=== PATIENT | male | born 1970 | race Two or more races ===

== ENCOUNTER 2021-03-30 13:44 | Emergency (ER) | payer OTHER ==
[~2021-03-30] VITALS: Ht 170.2 cm; Wt 108.9 kg
[2021-03-30 14:42] LABS: Basophils # (auto) 0 10 ^3/uL (0-0.2); Basophils % (auto) 0.4 % (0.0-2.0); Eosinophils # (auto) 0 10 ^3/uL (0-0.8); Eosinophils % (auto) 0.6 % (0.0-7.0); Hematocrit 48.4 % (41.0-53.0); Lymphocytes # (auto) 1.7 10 ^3/uL (0.4-5.4); Lymphocytes % (auto) 25.2 % (10.0-50.0); Mean Corpuscular Hemoglobin 28.7 pg (28.0-32.0); Mean Corpuscular Hgb Conc. 35.2 g/dL (32.0-36.0); Mean Corpuscular Volume 81.6 fL (80.0-100.0); Monocytes # (auto) 0.9 10 ^3/uL (0-1.3); Monocytes % (auto) 12.9 % (0.0-12.0); Neutrophils # (auto) 4.2 10 ^3/uL (1.6-8.6); Neutrophils % (auto) 60.9 % (37.0-80.0); Red Blood Cells 5.94 10^6/uL (4.5-5.90); Red Cell Distribution Width 14.4 % (11.8-14.3); White Blood Cell 6.9 10^3/uL (4.4-10.8)
[2021-03-30 14:57] LABS: Chloride 106 mmol/L (98-107); Potassium 3.8 mmol/L (3.5-5.1); Sodium 137 mmol/L (136-145)
[2021-03-30 15:01] LABS: Albumin 3.2 g/dL (3.4-5.0); Anion Gap 6 (5-15); Blood Urea Nitrogen 12 mg/dL (7-18); Calcium 8.5 mg/dL (8.5-10.1); Carbon Dioxide 25 mmol/L (21-32); GFR African American 131 mL/min; GFR Non-African American 108 mL/min; Glucose 301 mg/dL (74-106); Magnesium 2.2 mg/dL (1.6-2.6)
[2021-03-30 15:13] LABS: Alanine Aminotransferase 51 U/L (16-61); Alkaline Phosphatase 114 U/L (45-117); Aspartate Aminotransferase 23 U/L (15-37); Bilirubin, Total 0.6 mg/dL (0.2-1.0); Total Protein 7.6 g/dL (6.4-8.2)
[2021-03-30 16:21] LABS: Urine Bacteria NONE SEEN /hpf (None Seen); Urine Blood Negative /uL (Negative); Urine Mucus FEW (None Seen); Urine Specific Gravity 1.044 (1.001-1.035); Urine WBC 2 /hpf (0 - 3)
[2021-03-30 16:35] LABS: Amphetamine Screen, Urine NEGATIVE (NEGATIVE); Barbiturate Scree,Urine NEGATIVE (NEGATIVE); Benzodiazephine Screen, Urine NEGATIVE (NEGATIVE); Cannabinoid Screen, Urine NEGATIVE (NEGATIVE); Cocaine Screen, Urine NEGATIVE (NEGATIVE); Opiate Scree,Urine NEGATIVE (NEGATIVE); Phencyclidine Screen, Urine NEGATIVE (NEGATIVE)
[2021-03-30 16:51] LABS: INR 0.97 (0.9-1.15); Partial Thromboplastin Time 26.4 sec (23.0-31.2)
[2021-03-30 19:00] VITALS: BP 118/80
== END 2021-03-30 19:31 | disposition home or self-care (01) ==
LOC: EDBD 13:44 → ER 13:44
DX: E11.9 Type 2 diabetes mellitus without complications (principal); F17.210 Nicotine dependence, cigarettes, uncomplicated; Z20.822 Contact with and (suspected) exposure to COVID-19
CPT/HCPCS: 36415; 36600; 71045; 80053; 80307; 81001; 82805; 83605; 83735; 83880; 84484; 85025; 85049; 85379; 85610; 85730; 87040; 87426; 93005